=== PATIENT | female | born 1995 | race Caucasian/White ===

== ENCOUNTER 2016-10-02 01:27 | Emergency (ER) | payer BC, MEDICAID ==
[~2016-10-02] VITALS: Ht 162.6 cm; Wt 80.3 kg
[2016-10-02 01:29] VITALS: BP 120/79
== END 2016-10-02 02:42 | disposition home or self-care (01) ==
LOC: ED 02:32
DX: S01.511D Laceration without foreign body of lip, subsequent encounter (principal); X58.XXXD Exposure to other specified factors, subsequent encounter; Y93.89 Activity, other specified; Y92.89 Other specified places as the place of occurrence of the external cause; Y99.8 Other external cause status
CPT/HCPCS: 99281